=== PATIENT | female | born 1980 | race African-American/Black ===

== ENCOUNTER 2020-08-25 15:38 | Emergency (ER) | payer SELFPAY ==
[~2020-08-25] VITALS: Ht 157.5 cm; Wt 99.0 kg
[2020-08-25 16:24] VITALS: BP 120/85
[2020-08-25] MEDS ORDERED: ACETAMINOPHEN 325MG TABLET PO ONE (18:45)
== END 2020-08-25 18:33 | disposition home or self-care (01) ==
LOC: ER 15:38
DX: R06.02 Shortness of breath (principal); R05 Cough; R50.9 Fever, unspecified; I10 Essential (primary) hypertension; Z53.21 Procedure and treatment not carried out due to patient leaving prior to being seen by health care provider